=== PATIENT | female | born 1995 | race Caucasian/White ===

== ENCOUNTER 2017-10-05 14:46 | Emergency (ER) | payer OTHER ==
[2017-10-05 15:19] LABS: URINE BLOOD (Dip) POC Trace-lysed (NEGATIVE); URINE GLUCOSE (Dip) POC Negative (NEGATIVE); URINE KETONES (Dip) POC Negative (NEGATIVE); URINE LEUKOCYTE EST (Dip) POC Negative (NEGATIVE); URINE NITRITE (Dip) POC Negative (NEGATIVE); URINE TOTAL PROTEIN POC Negative (NEGATIVE)
[2017-10-05 15:19] LABS: URINE PH (Dip) POC 6.5 (5.0-8.5)
== END 2017-10-05 16:49 | disposition home or self-care (01) ==
LOC: FTE 14:46
DX: R10.9 Unspecified abdominal pain (principal)
CPT/HCPCS: 81003; 99282

== ENCOUNTER 2018-03-07 12:31 | Emergency (ER) | payer OTHER | END 2018-03-07 13:43 | disposition home or self-care (01) | LOC: FTE 12:31 → E/R 13:43 | DX: M79.674 Pain in right toe(s) (principal) | CPT/HCPCS: 99283; Z7502 ==